=== PATIENT | male | born 1980 | race American Indian/Alaskan Native ===

== ENCOUNTER 2018-03-03 00:38 | Inpatient (IN) | payer OTHER ==
[~2018-03-03] VITALS: Ht 182.9 cm; Wt 140.8 kg
[~2018-03-03 00:38] MED LIST: ALBU90OI INH; Amoxicillin875 MG PO; IBUP400 PO; Keflex500 MG PO; LAMISIL AT30 GM TOP; Non-Aspirin Ex500 M1 PO; Norco 5-325 Ta1 EACH PO; OXYC5 PO; SPACE CHAMBER1 EACH MC; Zofran Odt8 MG SL
[2018-03-03 02:34] LABS: BASOPHILS ABSOLUTE AUTO 0.03 K/mm3 (0.00-0.23); BASOPHILS PERCENT AUTO 0 % (0-2); EOSINOPHILS PERCENT AUTO 1 % (0-6); Hematocrit 35.7 % (37.0-53.0); Hemoglobin 13.9 g/dL (13.5-17.5); IMMATURE GRAN ABSOLUTE AUTO 0.12 K/mm3 (0.00-0.10); IMMATURE GRAN PERCENT AUTO 2 % (0-1); LYMPHOCYTES ABSOLUTE AUTO 1.63 K/mm3 (0.84-5.20); LYMPHOCYTES PERCENT AUTO 22 % (21-46); MONOCYTES ABSOLUTE AUTO 0.48 K/mm3 (0.16-1.47); MONOCYTES PERCENT AUTO 6 % (4-13); Mean Corpuscular HGB 32.5 pg (26.0-34.0); Mean Corpuscular HGB Conc 38.9 g/dL (31.5-36.5); Mean Corpuscular Volume 83 fL (80-100); Mean Platelet Volume 9.5 fL (9.1-12.4); NEUTROPHILS ABSOLUTE AUTO 5.23 K/mm3 (1.96-9.15); NEUTROPHILS PERCENT AUTO 69 % (41-73); NRBC ABSOLUTE 0.06 K/mm3 (0.00-0.02); NRBC Auto 0.8 /100 WBC (0.0-0.2); Platelet Count 328 K/mm3 (150-400); RDW Coefficient Variation 13.5 % (11.7-14.2); Red Blood Cell Count 4.28 M/mm3 (4.30-5.90)
[2018-03-03 02:35] LABS: White Blood Cell Count 7.59 K/mm3 (4.00-11.30)
[2018-03-03 02:42] LABS: Albumin, Blood 2.6 g/dL (3.4-5.0); Anion Gap 13 mmol/L (6-16); Bilirubin, Total 1.4 mg/dL (0.1-1.0); CO2, Blood 21 mmol/L (21-32); Chloride, Blood 89 mmol/L (98-108); Creatinine, Blood 0.84 mg/dL (0.60-1.20); Glomerular Filtration Rate >60 (60-); Glucose, Blood 591 mg/dL (70-99); Potassium, Blood 3.6 mmol/L (3.5-5.5)
[2018-03-03 02:46] LABS: Sodium, Blood 123 mmol/L (136-145)
[2018-03-03 03:04] LABS: Alanine Aminotransfer (ALT/SGP < 120 U/L (12-78); Albumin/Globulin Ratio Unable to Calculate (0.8-1.8); Aspartate Aminotrans (AST/SGOT 128 U/L (12-37); Bun/Creatinine Ratio Unable to Calculate (12.0-20.0); Globulin, Blood Unable to Calculate g/dL (2.2-4.0)
[2018-03-03 04:25] LABS: CHOL/HDL RATIO Unable to Calculate; LDL/HDL RATIO Unable to Calculate; Low Density Lipoprotein Chol Unable to Calculate mg/dL (0-110); Triglycerides >4000 mg/dL (30-140); Very Low Density Lipoprot Chol Unable to Calculate mg/dL (6-28)
[2018-03-03 21:38] LABS: Chloride, Blood 89 mmol/L (98-108); Potassium, Blood 4.9 mmol/L (3.5-5.5)
[2018-03-03 21:39] LABS: Anion Gap 15 mmol/L (6-16); Bun/Creatinine Ratio Unable to Calculate (12.0-20.0); CO2, Blood 14 mmol/L (21-32); Glomerular Filtration Rate 49 (60-)
[2018-03-03 21:42] LABS: Sodium, Blood 118 mmol/L (136-145)
[2018-03-03 21:43] LABS: Glucose, Blood 756 mg/dL (70-99)
[2018-03-03 23:50] LABS: Test Name PT+PTT
[2018-03-04 00:20] LABS: Glucose (ISTAT POC) 591 mg/dL (70-99)
[2018-03-04 02:35] LABS: Glucose (ISTAT POC) 441 mg/dL (70-99)
[2018-03-04 03:55] LABS: Glucose (ISTAT POC) 621 mg/dL (70-99)
[2018-03-04 04:18] LABS: Albumin, Blood 2.3 g/dL (3.4-5.0); Alk Phos 73 U/L (50-136); Anion Gap 13 mmol/L (6-16); Aspartate Aminotrans (AST/SGOT 105 U/L (12-37); Bilirubin, Total 1.3 mg/dL (0.1-1.0); Blood Urea Nitrogen 22 mg/dL (8-24); Bun/Creatinine Ratio 9.4 (12.0-20.0); CO2, Blood 16 mmol/L (21-32); Chloride, Blood 92 mmol/L (98-108); Creatinine, Blood 2.33 mg/dL (0.60-1.20); Glomerular Filtration Rate 34 (60-); Glucose, Blood 679 mg/dL (70-99); Potassium, Blood 5.2 mmol/L (3.5-5.5); Sodium, Blood 121 mmol/L (136-145)
[2018-03-04 04:19] LABS: Albumin/Globulin Ratio Unable to Calculate (0.8-1.8); Globulin, Blood Unable to Calculate g/dL (2.2-4.0)
[2018-03-04 04:50] LABS: Glucose (ISTAT POC) 587 mg/dL (70-99)
[2018-03-04 05:20] LABS: BASOPHILS ABSOLUTE AUTO 0.08 K/mm3 (0.00-0.23); BASOPHILS PERCENT AUTO 1 % (0-2); Hematocrit 49.4 % (37.0-53.0); Mean Corpuscular HGB 29.6 pg (26.0-34.0); Mean Corpuscular HGB Conc 33.4 g/dL (31.5-36.5); Mean Platelet Volume 10.1 fL (9.1-12.4); NRBC ABSOLUTE 0.02 K/mm3 (0.00-0.02); NRBC Auto 0.2 /100 WBC (0.0-0.2); Platelet Count 335 K/mm3 (150-400); RDW Coefficient Variation 14.3 % (11.7-14.2); Red Blood Cell Count 5.58 M/mm3 (4.30-5.90); White Blood Cell Count 13.05 K/mm3 (4.00-11.30)
[2018-03-04 05:21] LABS: EOSINOPHILS ABSOLUTE AUTO 0.01 K/mm3 (0.00-0.68); EOSINOPHILS PERCENT AUTO 0 % (0-6); Hemoglobin 16.5 g/dL (13.5-17.5); IMMATURE GRAN ABSOLUTE AUTO 0.12 K/mm3 (0.00-0.10); IMMATURE GRAN PERCENT AUTO 1 % (0-1); LYMPHOCYTES ABSOLUTE AUTO 0.95 K/mm3 (0.84-5.20); LYMPHOCYTES PERCENT AUTO 7 % (21-46); MONOCYTES ABSOLUTE AUTO 0.53 K/mm3 (0.16-1.47); MONOCYTES PERCENT AUTO 4 % (4-13); Mean Corpuscular Volume 89 fL (80-100); NEUTROPHILS ABSOLUTE AUTO 11.36 K/mm3 (1.96-9.15); NEUTROPHILS PERCENT AUTO 87 % (41-73)
[2018-03-04 05:34] LABS: BAND PERCENT MAN 50 % (0-8); BASOPHILS ABSOLUTE MAN 0.13 K/mm3 (0.00-0.23); BASOPHILS PERCENT MAN 1 % (0-2); EOSINOPHILS PERCENT MAN 0 % (0-6); LYMPHOCYTES PERCENT MAN 10 % (21-46); MONOCYTES ABSOLUTE MAN 0.65 K/mm3 (0.16-1.47); MONOCYTES PERCENT MAN 5 % (4-13); NEUTROPHILS ABSOLUTE MAN 10.96 K/mm3 (1.96-9.15); SEG NEUTROPHILS PERCENT MAN 34 % (41-73); TOTAL CELLS COUNTED 100
[2018-03-04 06:00] LABS: Glucose (ISTAT POC) 538 mg/dL (70-99)
[2018-03-04 07:05] LABS: Glucose (ISTAT POC) 497 mg/dL (70-99)
[2018-03-04 14:21] LABS: PCO2 Arterial 34.4 mmHg (35-45); PO2 Arterial 72.6 mmHg (80-100)
[2018-03-04 14:22] LABS: pH Blood Arterial 7.29 (7.35-7.45)
[2018-03-04 19:17] LABS: Triglycerides >4000 mg/dL (30-140)
[2018-03-05 08:09] LABS: CREATININE, SERUM 0.96 mg/dL (0.76-1.27); POTASSIUM, SERUM 3.8 mmol/L (3.5-5.2)
[2018-03-05 09:10] LABS: A/G RATIO 0.9 (1.2-2.2); BILIRUBIN, TOTAL 0.5 mg/dL (0.0-1.2); CREATININE, SERUM 3.95 mg/dL (0.76-1.27); GLOBULIN, TOTAL 3.6 g/dL (1.5-4.5); POTASSIUM, SERUM 5.3 mmol/L (3.5-5.2)
== END 2018-03-04 18:45 | disposition short-term general hospital (02) | DRG 438 ==
LOC: ER 00:38 → SURS 03:29 → ICUW 03:29 → SURS 04:49 → ICUW 23:10
PROVIDERS: Emergency Medicine; Hospitalist; Internal Medicine; ADMIT Hospitalist
DX: K85.80 Other acute pancreatitis without necrosis or infection (principal); E11.10 Type 2 diabetes mellitus with ketoacidosis without coma; Z68.41 Body mass index [BMI] 40.0-44.9, adult; E87.1 Hypo-osmolality and hyponatremia; N17.9 Acute kidney failure, unspecified; E87.2 Acidosis; E87.3 Alkalosis; G47.33 Obstructive sleep apnea (adult) (pediatric); F17.200 Nicotine dependence, unspecified, uncomplicated; E66.01 Morbid (severe) obesity due to excess calories; E78.5 Hyperlipidemia, unspecified; F10.10 Alcohol abuse, uncomplicated; K76.0 Fatty (change of) liver, not elsewhere classified; R06.03 Acute respiratory distress; I10 Essential (primary) hypertension
CPT/HCPCS: 36415; 36600; 71045; 74177; 78582; 80048; 80053; 80061; 82803; 82947; 83690; 84478; 85025; 85610; 85730; 96361; 96374; 96375; 96376; 99285-25; A9540; A9558; C1751; J1170; J1650; J1815; J1885; J1940; J2270; J2405; J3010; J7030; J7042; J7120; Q9967

== ENCOUNTER 2018-04-22 01:11 | Emergency (ER) | payer OTHER ==
[~2018-04-22] VITALS: Ht 182.9 cm; Wt 124.7 kg
[2018-04-22] MEDS ORDERED: [UNRECOGNIZED DRUG - REMARK] (01:23)
[2018-04-22] MEDS ORDERED: INSULANPEN SC (01:23)
[2018-04-22 01:58] LABS: BASOPHILS ABSOLUTE AUTO 0.04 K/mm3 (0.00-0.23); BASOPHILS PERCENT AUTO 1 % (0-2); EOSINOPHILS PERCENT AUTO 4 % (0-6); Hematocrit 37.2 % (37.0-53.0); Hemoglobin 11.5 g/dL (13.5-17.5); IMMATURE GRAN ABSOLUTE AUTO 0.05 K/mm3 (0.00-0.10); IMMATURE GRAN PERCENT AUTO 1 % (0-1); LYMPHOCYTES ABSOLUTE AUTO 1.73 K/mm3 (0.84-5.20); LYMPHOCYTES PERCENT AUTO 24 % (21-46); MONOCYTES ABSOLUTE AUTO 0.64 K/mm3 (0.16-1.47); MONOCYTES PERCENT AUTO 9 % (4-13); Mean Corpuscular HGB 26.3 pg (26.0-34.0); Mean Corpuscular HGB Conc 30.9 g/dL (31.5-36.5); Mean Corpuscular Volume 85 fL (80-100); Mean Platelet Volume 8.9 fL (9.1-12.4); NEUTROPHILS ABSOLUTE AUTO 4.44 K/mm3 (1.96-9.15); NEUTROPHILS PERCENT AUTO 62 % (41-73); Platelet Count 315 K/mm3 (150-400); RDW Coefficient Variation 15.1 % (11.7-14.2); RDW Standard Deviation 47.2 fL (35.1-46.3); Red Blood Cell Count 4.38 M/mm3 (4.30-5.90)
[2018-04-22 02:08] LABS: Alanine Aminotransfer (ALT/SGP 55 U/L (12-78); Albumin, Blood 3.8 g/dL (3.4-5.0); Alk Phos 115 U/L (50-136); Anion Gap 10 mmol/L (6-16); Aspartate Aminotrans (AST/SGOT 25 U/L (12-37); Bilirubin, Total 0.3 mg/dL (0.1-1.0); Blood Urea Nitrogen 15 mg/dL (8-24); Bun/Creatinine Ratio 18.4 (12.0-20.0); CO2, Blood 24 mmol/L (21-32); Chloride, Blood 107 mmol/L (98-108); Creatinine, Blood 0.82 mg/dL (0.60-1.20); Glomerular Filtration Rate >60 (60-); Glucose, Blood 99 mg/dL (70-99); Potassium, Blood 3.8 mmol/L (3.5-5.5); Sodium, Blood 141 mmol/L (136-145); Total Protein, Blood 7.8 g/dL (6.4-8.2)
[2018-04-22] MEDS ORDERED: ONDA4ODT MM (02:25)
[2018-04-22] MEDS ORDERED: Norco 5-325 Ta1 EACH PO (02:25)
== END 2018-04-22 02:36 | disposition home or self-care (01) ==
LOC: ER 01:11
PROVIDERS: Emergency Medicine
DX: K86.1 Other chronic pancreatitis (principal); Z88.8 Allergy status to other drugs, medicaments and biological substances; F17.210 Nicotine dependence, cigarettes, uncomplicated; Z79.4 Long term (current) use of insulin
CPT/HCPCS: 36415; 80053; 83690; 85025; 96361; 96374; 96375; 99284-25; J2405; J3010; J7030